=== PATIENT | female | born 1990 | race Caucasian/White ===

== ENCOUNTER → 2017-02-03 | Outpatient (CLI) | payer OTHER ==
[~2017-02-03] MED LIST: LEVEMIR SQ; NOVOLOGP2 SQ
== END ==
LOC: HPND 08:13
PROVIDERS: ATTEND Obstetrics & Gynecology
DX: O36.80X0 Pregnancy with inconclusive fetal viability, not applicable or unspecified (principal); O24.919 Unspecified diabetes mellitus in pregnancy, unspecified trimester
CPT/HCPCS: 76801

== ENCOUNTER 2017-03-07 09:21 | Inpatient (IN) | payer OTHER ==
[~2017-03-07] VITALS: Ht 160 cm; Wt 61.1 kg
[2017-03-07] MEDS ORDERED: ACETAMINOPHEN 325 MG TAB PO PRN (15:45)
[2017-03-07 16:00] VITALS: BP 97/63; PULSE 97; RESP 16; TEMP 97.1; O2SAT 98
[2017-03-07] MEDS ORDERED: DEXTROSE 50% IN WATER 50 ML VIAL(D50) IV PUSH PRN (16:00)
[2017-03-07] MEDS ORDERED: GLUCAGON 1 MG/ML VIAL OTHER PRN (16:00)
[2017-03-07] MEDS: INDIVIDUALIZED INSULIN NOVOLIN REGULAR SUPPLEMENTAL SCALE SQ SCH ×2 (16:00→21:32)
[2017-03-07] MEDS ORDERED: ZOLPIDEM TARTRATE 10 MG TAB PO PRN (16:45)
[2017-03-07] MEDS ORDERED: SODIUM CHLORIDE FLUSH PRN IV FLUSH (16:45)
[2017-03-07] MEDS: MULTIVIT/MIN/PREN/FOL AC/IRON PRENATAL TAB PO SCH (17:00)
[2017-03-07 17:14] LABS: AUTOMATED NEUTROPHIL # 6.5 TH/MM3 (1.8-7.7); BASOPHIL # 0.1 TH/MM3 (0-0.2); BASOPHIL % 0.9 % (0.0-2.0); EOSINOPHIL % 0.6 % (0.0-4.0); HEMO FLAGS DIFF FINAL; LYMPH % 19.2 % (9.0-44.0); LYMPHOCYTE # 1.7 TH/MM3 (1.0-4.8); MEAN CELL VOLUME 81.6 FL (80.0-100.0); MEAN CORPUSCULAR HEMOGLOBIN 27.8 PG (27.0-34.0); MEAN CORPUSCULAR HGB CONC 34.1 % (32.0-36.0); MONO % 5.5 % (0.0-8.0); NEUT % 73.8 % (16.0-70.0); PLATELET COUNT 231 TH/MM3 (150-450); RED BLOOD COUNT 4.29 MIL/MM3 (4.00-5.30); RED CELL DISTRIBUTION WIDTH 14.5 % (11.6-17.2); WHITE BLOOD COUNT 8.8 TH/MM3 (4.0-11.0)
--- NOTE | 2017-03-07 17:35 | PD.PN.STU ---
Subjective Remarks HPI: This is a 26 year old female at approximately 13 weeks gestation with Type I Diabetes admitted for management of uncontrolled blood sugars. She was diagnosed with Type I diabetes at 23 years old after an episode of DKA. After being diagnosed she saw an apple checker once in [place] but reports not getting along with them. She has not seen any other endocrinologists and has no current PCP. 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 He recently became concerned about her medication compliance and contacted Dr. Aguayo for help. Last Monday (03/01/17) pt reports that she caught a "GI bug" that consisted of vomiting and diarrhea for 12 hours. Due to vomiting, diarrhea and a decreased appetite Dr. Valles instructed her to reduce her insulin doses to half which came out to 12 units of Novolin in the am, 17 units of Levemir in the am, and 5 units of Levemir at pm. She continued to have a decreased appetite and on Monday was having very low blood sugars in the range of 40 - 53. Due to severe fatigue and inability to raise her blood sugars she went to the emergency room at [facility] on Monday. They administered D50 and also diagnosed her with a urinary tract infection. She was given a script for Macrobid 100 mg BID for 7 days but has not started the medication. This morning (03/18/2017) she had an appointment at the Diagnostic center at the request of Dr. Aguayo. They completed blood work, first trimester screen and an ultrasound. ultrasound was normal. They got a 2 hour post prandial glucose of 290. Pt reports that she had renuka donuts for breakfast prior to the appointment. Due to uncontrolled blood sugars - today's 290 and recent GI bug causing hypoglycemia it was determined that patient should be admitted to manage her diabetes and determine an insulin regimen. Today she is still feeling tired and her appetite is still not at baseline. At admission, around 4 pm, her 2 hour post prandial blood glucose was 163. Review of Systems: Patient denies any fevers, chills, headaches, vision changes, chest pain, cough , shortness of breath, abdominal pain, constipation, diarrhea, nausea, vomiting , muscles aches, weakness. Patient admits to some fatigue and decreased appetite. Past Medical History: Type I Diabetes Anxiety Past Surgical History: negative Medications: Novolin (70/30): 24 units in the morning Levemir: 35 units in the morning, 10 units at night. Zofran as needed for nausea Allergies: no known allergies. Gynecologic History: Menarche @ ____ History of regular menses. No history of sexually transmitted diseases. No history of abnormal paps. No history of cone biopsy, LEEP or other cervical, uterine, or concrete puddler procedures/ surgeries. Obstetrical History: Primigravida - approximately 13 weeks. LMP 12/06/2016 Estimated due date 09/12/17 Family History: Mom- alive, in good health. Dad- alive, in good health. 2 brothers- alive, in good health. 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 General: female appearing stated age in no acute distress. Well- developed, well-nourished, alert, oriented. Mom is at the bedside. Head: atraumatic, normocephalic. Eyes: sclera non-icteric. Heart: regular rate and rhythm. No murmurs, gallops or rubs. Lungs: clear to auscultation bilaterally. No crackles, wheezes, or rhonchi. Non- labored breathing, no use of accessory muscles. No signs of central or peripheral cyanosis. Imaging Ultrasound 03/18/2017: Transabdominal ultrasound - costa intrauterine gestation. CRL correlated with 13 weeks and 0 day gestation with normal cardiac activity. Nuchal translucency measurements obtained were 1.6 mm and this is considered normal. nasal bone identified. Anatomy Observed: Two cerebral hemispheres, two orbits, two upper extremities, two lower extremities, normal cord insertion to the fetus, stomach, bladder, sagittal view of spine. No gross congenital anomalies were identified at this date. Uterus: no uterine masses or abnormalities Adnexa: right adnexa observed and within normal limits. Left ovarian cyst measuring 2.28 cm x 2.59 cm x 2.36 cm Cul de sac: no free fluid A/P Assessment and Plan Impression: this is a 26 year old primigravid female at 13 weeks gestation with uncontrolled type I diabetes admitted for management of blood sugars and insulin regimen. ultrasound done 03/07/2017 showed no abnormalities. Assessment/Plan 1. - currently stable but considered a high risk due to type I diabetes 13 weeks gestational age Ultrasound done 03/07/2017 showed a healthy viable fetus labs were drawn this morning we will follow for results 2. Type I Diabetes - uncontrolled blood sugars will be tested morning and 2 hour post prandial start on regular insulin and levemir sliding scale as needed diabetic diet consult level vial inspector and tester / patient education 3. UTI Macrobid 100 mg twice a day for 7 days culture and sensitivity before initiating medication 4. Admission IV access estimate a 2 day stay until blood sugars have been regulated and insulin regimen established order Ambien 10 mg for sleep prn diabetic diet Edgardo Harmon M3 Mar 07, 2017 17:35
[2017-03-07 17:43] LABS: ALKALINE PHOSPHATASE 71 U/L (45-117); ALT (GPT) 28 U/L (10-53); ANION GAP 7 MEQ/L (5-15); AST (GOT) 14 U/L (15-37); BICARBONATE 26.4 MEQ/L (21.0-32.0); BLOOD UREA NITROGEN 8 MG/DL (7-18); CHLORIDE 106 MEQ/L (98-107); GLOMERULAR FILTRATION RATE 138 ML/MIN (>89); POTASSIUM 3.4 MEQ/L (3.5-5.1); SODIUM (NA) 139 MEQ/L (136-145); TOTAL BILIRUBIN ADULT 0.2 MG/DL (0.2-1.0)
[2017-03-07 20:00] VITALS: BP_SYST 101; BP_SYST 117; BP_DIAS 60; BP_DIAS 77; PULSE 98; RESP 16; TEMP 98.2; O2SAT 96; O2SAT 98
[2017-03-07] MEDS: SODIUM CHLORIDE FLUSH BID IV FLUSH SCH (21:00)
[2017-03-07] MEDS: INSULIN DETEMIR 100 UNITS/ML VIAL SQ SCH ×2 (21:00→23:24)
[2017-03-07] MEDS: NITROFURANTOIN MONOHYD MACROCR 100 MG CAP PO SCH (21:32)
[2017-03-07 22:14] LABS: HEMOGLOBIN A1a 0.9 %; HEMOGLOBIN A1b 1.7 %; HEMOGLOBIN Ao 82.9 %; HEMOGLOBIN LA1C 2.4 %; HEMOGLOBIN P3 4.2 %
--- NOTE | 2017-03-07 23:44 | MH ---
cc: JOSE HERNDON DATE OF ADMISSION: 03/07/2017 ADMITTING DIAGNOSIS: HISTORY OF PRESENT ILLNESS: The patient is a 26 year-old 1, para 0, who presented 13 weeks gestation with poorly controlled type 1 diabetes. The patient was admitted from diagnostics after having a blood sugar of 290, post prandial, stating that she had had [employer] munchkin and a coffee for breakfast. The patient's blood sugars have been labile over the past week. The patient had been hypoglycemic at the end of last week after having a GI bug. She had been followed by her employer, also internal medicine physician, Dr. Valles, for her blood sugars as she had been unhappy with the sausage cooker that she had seen at [facility] in the past. Today was the first time the patient had been evaluated by [facility]. The patient denies any symptoms currently in terms of vaginal bleeding, abdominal pain, nausea and vomiting. She denies dizziness, lightheadedness, shortness of breath, chest pain, sweats or chills. PAST MEDICAL HISTORY: 1. Significant for type 1 diabetes diagnosed at age 23. 2. Anxiety. PAST SURGICAL HISTORY: [place] tooth extraction. OBSTETRICAL HISTORY: First . PORTRAIT CONSULTANT HISTORY: No history of STDs or abnormal Pap smear. Positive history of polycystic ovarian syndrome. SOCIAL HISTORY: Negative for cigarettes, alcohol or street drugs. The patient is . ALLERGIES None. MEDICATIONS 1. vitamins. 2. Levemir. Her dosage had been reduced to 17 units of Levemir in the morning and 5 units in the evening. PHYSICAL EXAMINATION She is afebrile. Vitals are all stable. Heart: Regular rate and rhythm. Lungs: Clear to auscultation bilaterally. Abdomen: Soft, nontender, nondistended. Extremities: Lower extremities are nontender, nonedematous. LABORATORY DATA: Reviewed. Grossly within normal limits. Her hemoglobin A1c is notable for being 7.4, potassium a little bit low at 3.4. Random glucose is 121, liver function tests are grossly within normal limits. IMPRESSION Poorly controlled type 1 diabetic at 13 weeks. PLAN: Will admit. Will continue Levemir. Will add sliding scale regular insulin. Will also consult nurse educator and will also collect a 24-hour urine for total protein, creatinine clearance. Will continue antibiotics for UTI diagnosed on Monday. Will watch for clinical improvement. The patient understands the importance of being compliant with her diet and we will work to achieve this goal. All questions have been answered in the presence of the patient and her mother. MD HILDA Tan/ZABRINA /11:20 PM /11:32 PM
[2017-03-08] VITALS: BP 106/66; PULSE 81; RESP 16; TEMP 98.1; O2SAT 97
[2017-03-08 05:36] VITALS: BP 104/68; PULSE 77; RESP 16; TEMP 96.6; O2SAT 99
[2017-03-08] MEDS: INDIVIDUALIZED INSULIN NOVOLIN REGULAR SUPPLEMENTAL SCALE SQ SCH ×4 (06:22→22:08)
[2017-03-08 08:00] VITALS: BP 109/67; PULSE 91; RESP 18; TEMP 97.3; O2SAT 99
[2017-03-08] MEDS: NITROFURANTOIN MONOHYD MACROCR 100 MG CAP PO SCH ×2 (08:22→21:47)
[2017-03-08] MEDS: SODIUM CHLORIDE FLUSH BID IV FLUSH SCH ×2 (08:23→21:47)
[2017-03-08] MEDS ORDERED: INSULIN DETEMIR 100 UNITS/ML VIAL SQ SCH ×2 (09:00)
[2017-03-08 12:00] VITALS: BP 101/59; PULSE 88; RESP 18; TEMP 96.9; O2SAT 100
[2017-03-08 16:00] VITALS: BP 106/63; PULSE 86; RESP 18; TEMP 97.5; O2SAT 100
[2017-03-08] MEDS: MULTIVIT/MIN/PREN/FOL AC/IRON PRENATAL TAB PO SCH (17:54)
[2017-03-08 21:10] VITALS: BP 105/63; PULSE 98; RESP 16; TEMP 98.3; O2SAT 98
[2017-03-08] MEDS ORDERED: NALOXONE HCL 0.4 MG/ML AMP IV PRN (22:30)
[2017-03-08] MEDS ORDERED: SODIUM CHLORIDE 0.9% FLUSH 10 ML FLUSH IV FLUSH PRN (22:30)
--- NOTE | 2017-03-08 22:42 | HHI.PR ---
Subjective Remarks pt with 2 hypoglycemic episodes overnight. denies dizziness, lightheadedness and SOB Objective Vital Signs Date Time Temp Pulse Resp B/P Pulse Ox O2 Delivery O2 Flow Rate FiO2 03/08/17 21:10 98.3 98 16 105/63 98 03/08/17 16:00 97.5 86 18 106/63 100 03/08/17 12:00 96.9 88 18 101/59 100 03/08/17 08:00 97.3 91 18 109/67 99 03/08/17 05:36 96.6 77 16 104/68 99 03/08/17 00:00 98.1 81 16 106/66 97 I/O 03/07/17 03/07/17 03/07/17 03/08/17 03/08/17 03/08/17 07:00 15:00 23:00 07:00 15:00 23:00 Intake Total 360 ml 250 ml 1820 ml Output Total 500 ml 1950 ml Balance 360 ml -250 ml -130 ml Intake Oral 360 ml 250 ml 1820 ml IV Total 0 ml Output Urine Total 500 ml 1950 ml # Voids 1 # Bowel Movements 0 0 0 Result Diagram: 03/07/17 1700 03/07/17 1700 Objective Remarks GENERAL: Well-nourished, well-developed patient. CARDIOVASCULAR: Regular rate and rhythm without murmurs, gallops, or rubs. RESPIRATORY: Breath sounds equal bilaterally. No accessory muscle use. ABDOMEN/GI: Abdomen soft, non-tender. EXTREMITIES: No cyanosis or edema, non-tender, without signs of DVT. Assessment and Plan Problem List: (1) Diabetes mellitus affecting in first trimester Status: Acute Plan: cont to titrate levemir and regular insulin to achieve better control of blood sugars. cont DM diet cont macrobid for UTI Hannah Aguayo MD Mar 08, 2017 22:42
[2017-03-08] MEDS ORDERED: DEXTROSE 50% IN WATER 50 ML VIAL(D50) IV PUSH PRN (23:45)
[2017-03-08] MEDS ORDERED: GLUCAGON 1 MG/ML VIAL OTHER PRN (23:45)
[2017-03-09 00:05] VITALS: BP 104/59; PULSE 76; RESP 16; TEMP 98.4; O2SAT 99
[2017-03-09] MEDS: INSULIN DETEMIR 100 UNITS/ML VIAL SQ SCH (00:05)
[2017-03-09 03:09] LABS: CREAT 24 TIMED 39.8 MG/DL; URINE TOTAL PROTEIN TIMED 6.8 MG/DL
[2017-03-09 05:10] VITALS: BP 104/63; PULSE 87; RESP 16; TEMP 96.3; O2SAT 98
[2017-03-09] MEDS: INSULIN ASPART 1,000 UNITS/10 ML VIAL SQ SCH ×2 (07:00→13:39)
[2017-03-09] MEDS: INDIVIDUALIZED INSULIN NOVOLOG SUPPLEMENTAL SCALE SQ SCH ×2 (07:00→13:38)
[2017-03-09 08:00] VITALS: BP 104/66; PULSE 82; RESP 18; TEMP 97.8; O2SAT 99
[2017-03-09] MEDS ORDERED: SODIUM CHLORIDE 0.9% FLUSH 10 ML FLUSH IV FLUSH SCH (09:00)
[2017-03-09] MEDS ORDERED: INSULIN DETEMIR 100 UNITS/ML VIAL SQ SCH (09:00)
[2017-03-09] MEDS: NITROFURANTOIN MONOHYD MACROCR 100 MG CAP PO SCH (09:12)
[2017-03-09 12:00] VITALS: BP 101/55; PULSE 94; RESP 18; TEMP 96.6; O2SAT 99
[2017-03-09 16:00] VITALS: BP 96/61; PULSE 92; RESP 18; TEMP 97; O2SAT 98
--- NOTE | 2017-03-09 17:24 | HHI.DCPOC ---
Discharge Care Plan Diagnosis: (1) Diabetes mellitus affecting in first trimester Report Symptoms to Your Doctor -Temperate above 100.5 degrees -Redness, of incision or excessive or foul smelling drainage -Unusual pain or calf pain -Increased vaginal bleeding -Painful or difficulty urinating -Feelings of extreme sadness or anxiety after 2 weeks Goals to Promote Your Health * To prevent worsening of your condition and complications * To maintain your health at the optimal level Directions to Meet Your Goals Take your medications as prescribed Follow your dietary instruction Follow activity as directed Ensure plenty of rest for recovery Drink fluids for hydration Keep your appointments as scheduled Take your immunizations and boosters as scheduled If your symptoms worsen call your PCP, if no PCP go to Urgent Care Center or Emergency Room Smoking is Dangerous to Your Health. Avoid second hand smoke Call the 24-hour crisis hotline for domestic abuse at Hannah Aguayo MD Mar 09, 2017 17:24
[2017-03-09] MEDS: MULTIVIT/MIN/PREN/FOL AC/IRON PRENATAL TAB PO SCH (17:28)
--- NOTE | 2017-03-09 17:33 | HHI.DS ---
Discharge Summary Admission Date Mar 07, 2017 at 14:49 Discharge Date: Mar 09, 2017 Admitting Diagnosis poorly controlled DM in first trimester of (1) Diabetes mellitus affecting in first trimester Diagnosis: Principal CBC/BMP: 03/07/17 1700 03/07/17 1700 Significant Findings Laboratory Tests Test 03/07/17 03/09/17 17:00 02:31 Neutrophils (%) (Auto) 73.8 % (16.0-70.0) Potassium Level 3.4 MEQ/L (3.5-5.1) Random Glucose 121 MG/DL (74-106) Hemoglobin A1c 7.4 % (4.3-6.0) Aspartate Amino Transf 14 U/L (15-37) (AST/SGOT) Albumin 3.1 GM/DL (3.4-5.0) Urine Total Protein 24 Hour 170 MG/24HR (0-150) PE at Discharge GENERAL: Well-nourished, well-developed patient. CARDIOVASCULAR: Regular rate and rhythm without murmurs, gallops, or rubs. RESPIRATORY: Breath sounds equal bilaterally. No accessory muscle use. ABDOMEN/GI: Abdomen soft, non-tender. EXTREMITIES: No cyanosis or edema, non-tender, without signs of DVT. Hospital Course pt was admitted her insulin regimen was adjusted. her novolin 70/30 was d/c'd and novolog was started. The patient's hypoglycemic episodes resolved. The patient states that she will be compliant with qid accu checks and new insulin regimen and will see endocrinology. importance of compliance reviewed. Pt Condition on Discharge: Good Discharge Disposition: Discharge Home Discharge Instructions DIET: Follow Instructions for: Diabetic Diet Activities you can perform: Regular-No Restrictions Hannah Aguayo MD Mar 09, 2017 17:33
[2017-03-09] MEDS ORDERED: LEVEMIR SQ (21:07)
[2017-03-09] MEDS ORDERED: NOVOLOGP2 SQ (21:09)
== END 2017-03-09 18:50 | disposition home or self-care (01) | DRG 781 ==
LOC: HPND 09:21 → EDUNIT# 13:00 → HOCA 14:49
PROVIDERS: ADMIT Obstetrics & Gynecology; ATTEND Obstetrics & Gynecology
DX: O24.011 Pre-existing type 1 diabetes mellitus, in pregnancy, first trimester (principal); E10.649 Type 1 diabetes mellitus with hypoglycemia without coma; O23.41 Unspecified infection of urinary tract in pregnancy, first trimester; O99.281 Endocrine, nutritional and metabolic diseases complicating pregnancy, first trimester; E28.2 Polycystic ovarian syndrome; Z3A.13 13 weeks gestation of pregnancy; O09.891 Supervision of other high risk pregnancies, first trimester; Z79.4 Long term (current) use of insulin
CPT/HCPCS: 36416; 76813; 80053; 82570; 82948; 83036; 84157; 84443; 85025; J1815

== ENCOUNTER → 2017-04-11 | Outpatient (CLI) | payer OTHER | LOC: HPND 09:26 | PROVIDERS: ATTEND Obstetrics & Gynecology | DX: O24.012 Pre-existing type 1 diabetes mellitus, in pregnancy, second trimester (principal); Z3A.18 18 weeks gestation of pregnancy | CPT/HCPCS: 76811 ==

== ENCOUNTER → 2017-05-10 | Outpatient (CLI) | payer OTHER | LOC: HPND 10:37 | PROVIDERS: ATTEND Obstetrics & Gynecology | DX: O24.012 Pre-existing type 1 diabetes mellitus, in pregnancy, second trimester (principal); Z3A.22 22 weeks gestation of pregnancy | CPT/HCPCS: 76816; 76825; 76827; 93325 ==

== ENCOUNTER → 2017-06-08 | Outpatient (CLI) | payer OTHER | LOC: HPND 14:45 | PROVIDERS: ATTEND Obstetrics & Gynecology | DX: O24.112 Pre-existing type 2 diabetes mellitus, in pregnancy, second trimester (principal); Z3A.26 26 weeks gestation of pregnancy | CPT/HCPCS: 76816 ==

== ENCOUNTER → 2017-07-06 | Outpatient (CLI) | payer OTHER ==
[~2017-07-06] MED LIST changes: +IBUP-232 PO; +OXYC1TAB63 PO
== END ==
LOC: HPND 15:18
PROVIDERS: ATTEND Obstetrics & Gynecology
DX: O24.113 Pre-existing type 2 diabetes mellitus, in pregnancy, third trimester (principal)
CPT/HCPCS: 76816

== ENCOUNTER 2017-08-18 09:59 | Inpatient (IN) | payer OTHER ==
[~2017-08-18 09:59] MED LIST changes: -IBUP-232 PO; -OXYC1TAB63 PO
[2017-08-18] MEDS: LACTATED RINGER'S 1000 ML INJ 1,000 ML IV SCH ×5 (10:56→23:00)
[2017-08-18 11:44] LABS: AUTOMATED NEUTROPHIL # 8.1 TH/MM3 (1.8-7.7); BASOPHIL % 0.4 % (0.0-2.0); EOSINOPHIL % 0.3 % (0.0-4.0); HEMO FLAGS DIFF FINAL; LYMPH % 15.8 % (9.0-44.0); LYMPHOCYTE # 1.6 TH/MM3 (1.0-4.8); MEAN CELL VOLUME 73.2 FL (80.0-100.0); MEAN CORPUSCULAR HEMOGLOBIN 23.8 PG (27.0-34.0); MEAN CORPUSCULAR HGB CONC 32.6 % (32.0-36.0); MONO % 5.4 % (0.0-8.0); NEUT % 78.1 % (16.0-70.0); PLATELET COUNT 159 TH/MM3 (150-450); RED BLOOD COUNT 3.82 MIL/MM3 (4.00-5.30); RED CELL DISTRIBUTION WIDTH 16.3 % (11.6-17.2); WHITE BLOOD COUNT 10.4 TH/MM3 (4.0-11.0)
[2017-08-18] MEDS ORDERED: OXYTOCIN 10 UNIT/ML AMP IV ONE (12:00)
[2017-08-18] MEDS ORDERED: ONDANSETRON HCL 4 MG/2 ML VIAL IV PUSH ONE (12:00)
[2017-08-18] MEDS ORDERED: MORPHINE SULFATE PF 5 MG/10 ML VIAL EPIDURAL ONE (12:00)
[2017-08-18] MEDS ORDERED: LACTATED RINGER'S 1000 ML INJ 2,000 ML IV ONE (12:00)
[2017-08-18] MEDS ORDERED: ePHEDrine/NS 25 MG/5 ML SYR IV ONE (12:00)
[2017-08-18 12:01] LABS: GLUCOSE,2HR PP 173 MG/DL; GLUCOSE,FASTING 173 MG/DL (74-99)
[2017-08-18 12:36] LABS: BACTERIA, URINE RARE /hpf; BLOOD, URINE NEG (NEG); COMMENT (UR) CULTURE INDICATED; CULTURE IF INDICATED CULTURE INDICATED; GLUCOSE,URINE 1000 mg/dL (NEG); KETONE, URINE NEG (NEG); MUCUS URINE FEW /lpf (OCC); NITRITE,URINE NEG (NEG); SQUAMOUS EPITHELIAL CELL URINE 2 /hpf (0-5); URINE COLOR YELLOW (YELLW/STRAW)
[2017-08-18] MEDS ORDERED: LACTATED RINGER'S 1000 ML INJ 1,000 ML IV ONE (14:41)
[2017-08-18] MEDS: DEXTROSE 5%-LACTATED RING INJ 1,000 ML IV SCH ×2 (15:15→23:15)
[2017-08-18] MEDS ORDERED: DEXTROSE 5%-LACTATED RING INJ 1,000 ML IV SCH (15:15)
--- NOTE | 2017-08-18 15:17 | MH ---
cc: HANNAH HERNDON DATE OF ADMISSION: 08/18/2017 HISTORY OF PRESENT ILLNESS The patient is a 27-year-old, 1, para 0, who presents at 36 and 3/7 weeks from diagnostics secondary to non-reassuring testing. She had a biophysical profile that was 6/10 and an amniotic fluid index of 32. On her tracings there she had minimal variability and one long deceleration noted. The patient was then sent to labor and delivery for further testing. The patient's has been complicated by pregestational diabetes and she has been poorly compliant with her diet. PAST MEDICAL HISTORY Diabetes. PAST SURGICAL HISTORY Negative. OB HISTORY This is her first . 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 SOCIAL HISTORY Negative for cigarettes, alcohol or street drugs. MEDICATIONS Current medications are insulin. She takes Tresiba and a NovoLog FlexPen. ALLERGIES None. PHYSICAL EXAMINATION VITAL SIGNS: She is afebrile. Her blood pressure is 130/67. GENERAL: She is in no acute distress. HEART: Regular rate and rhythm. LUNGS: Clear to auscultation bilaterally. ABDOMEN: Gravid. EXTREMITIES: Lower extremities with 1-2+ edema bilaterally. HEART RATE TRACING heart tones are in the 150s. There is minimal variability. There are occasional decelerations. Also occasional contractions are noted. IMPRESSION at 36 and 3/7 weeks with non-reassuring testing remote from delivery, and suspect intolerance to labor. PLAN Reviewed with the patient indications for delivery given poorly controlled diabetes, polyhydramnios and non-reassuring testing. The risks, benefits and alternatives of have been reviewed. The patient understands and does desire to proceed. We also reviewed the risk of prematurity and risk of poorly controlled diabetes with the patient. She understands that the baby will likely need to spend time in the NICU. Will also consult neonatology. Hannah Herndon MD TEG/BT /2:36 PM /3:04 PM
[2017-08-18] MEDS ORDERED: ACETAMINOPHEN 1000 MG/100 ML 100 ML IV ONE ×2 (15:43→17:00)
[2017-08-18] MEDS ORDERED: ceFAZolin 2 GM PREMIX 50 ML IV SCH (15:45)
[2017-08-18 15:54] LABS: HEMOGLOBIN A1a 1.2 %; HEMOGLOBIN A1b 2.1 %; HEMOGLOBIN Ao 80.5 %; HEMOGLOBIN LA1C 2.5 %; HEMOGLOBIN P3 4.3 %
[2017-08-18] MEDS ORDERED: MORPHINE SULFATE PF 5 MG/10 ML VIAL IT ONE (15:59)
[2017-08-18] MEDS ORDERED: CITRIC ACID-SODIUM CITRATE LIQ 30 ML UDC PO SCH (16:15)
[2017-08-18] MEDS ORDERED: DOCUSATE SODIUM 50 MG/SENNA 8.6 MG TAB PO PRN (17:00)
[2017-08-18] MEDS ORDERED: SIMETHICONE 80 MG CHEWABLE TAB PO PRN (17:00)
[2017-08-18] MEDS ORDERED: KETOROLAC TROMETHAMINE 60 MG/2 ML (IM) VIAL IM PRN ×2 (17:00)
[2017-08-18] MEDS ORDERED: ZOLPIDEM TARTRATE 5 MG TAB PO PRN (17:00)
[2017-08-18] MEDS ORDERED: oxyCODONE/ACETAMINOPHEN 5 MG/325 MG TAB PO PRN (17:00)
[2017-08-18] MEDS ORDERED: SODIUM CHLORIDE 0.9% FLUSH 10 ML FLUSH IV FLUSH PRN (17:00)
[2017-08-18] MEDS ORDERED: OXYTOCIN 10 UNIT/ML AMP XX PRN (17:00)
[2017-08-18] MEDS ORDERED: OXYTOCIN 30 UNITS-500ML PREMIX 500 ML IV ONE (17:00)
[2017-08-18] MEDS ORDERED: LORazepam 0.5 MG TAB PO PRN (17:00)
[2017-08-18] MEDS ORDERED: OXYTOCIN 10 UNIT/ML AMP XX ONE (17:00)
[2017-08-18] MEDS ORDERED: MEPERIDINE HCL 25 MG/ML VIAL ONE (17:13)
[2017-08-18 17:36] LABS: BLOOD GAS BASE EXCESS -2.3 mmol/L (-2-2); BLOOD GAS O2 HGB SATURATION 6 % (90-100); CORD BLOOD GAS HCO3 26 mmol/L (21-29); CORD BLOOD GAS PCO2 85 mmHG (34-78); CORD BLOOD GAS PH 7.12 (7.14-7.42); CORD BLOOD GAS PO2 8 mmHG (3.0-40.0); DRAW SITE CORD BLOOD; STAT NO
[2017-08-18] MEDS: ONDANSETRON HCL 4 MG/2 ML VIAL IV PUSH PRN (18:57)
[2017-08-18] MEDS ORDERED: EPIDURAL-NALOXONE HCL 0.4 MG/ML AMP IV PUSH PRN (20:00)
[2017-08-18] MEDS ORDERED: EPIDURAL-NO SYSTEMIC NARCOTICS PRN (20:00)
[2017-08-18] MEDS ORDERED: EPIDURAL-DIPHENHYDRAMINE HCL 50 MG CAP PO PRN (20:00)
[2017-08-18] MEDS ORDERED: EPIDURAL-DO NOT ADMINISTER ANTICOAGULANTS PRN (20:00)
[2017-08-18] MEDS ORDERED: EPIDURAL-DIPHENHYDRAMINE HCL 50 MG/ML VIAL IV PUSH PRN (20:00)
--- NOTE | 2017-08-18 20:43 | MP ---
cc: JOSE HERNDON MD DATE OF SURGERY 08/18/17 PREOPERATIVE DIAGNOSIS Intrauterine at 36-3/7 weeks gestation, non-reassuring heart tones, poorly controlled gestational diabetic POSTOPERATIVE DIAGNOSIS 1. Intrauterine at 36-3/7 weeks gestation, non-reassuring heart tones, poorly controlled gestational diabetic 2. Delivery of viable male . PROCEDURE Primary low transverse section. SURGEON Marsha Herndon MD ANESTHESIA Spinal. ESTIMATED BLOOD LOSS 700 mL. DRAINS [place] to gravity FINDINGS Normal tubes and ovaries bilaterally. Normal uterus grossly DISPOSITION Stable in the PACU INDICATIONS The patient is a 27-year-old 1, para 0 who presented to the hospital from OB diagnostics after having non-reassuring testing. We did prolonged monitoring and even IV hydrated. The heart rate tracing remained category II and the patient's cervix was only 1 cm, thus being remote from delivery and with a category II treating it was felt that we could not safely start Pitocin to induce labor. Thus, the patient was consented for a . PROCEDURE IN DETAIL After informed consent was obtained, she was taken to the operating room, given spinal anesthesia. She was then prepped and draped in normal sterile fashion for surgery. A Pfannenstiel skin incision was made two fingerbreadths above the pubic symphysis and carried down to the underlying layer of fascia using the Bovie. The fascia was incised in the midline. The fascial incision extended laterally digitally. The rectus muscles were in midline. The peritoneum was identified and entered bluntly. The peritoneal incision was extended superiorly and inferiorly with good visualization of the bladder. The bladder blade was inserted. The vesicouterine peritoneum was identified, tented up and entered sharply. The bladder blade was reinserted. A transverse incision was then made on the lower uterine segment to a layer just exposing membranes. These are ruptured for copious amount of clear fluid as the patient had polyhydramnios with an TANYA of 32. Next, the vertex was delivered atraumatically followed by the remainder of the 's body. The cord was doubly clamped and cut. The cord gas was obtained. Cord bloods are also obtained. The placenta was removed manually intact with a three-vessel cord. Placenta sent off to pathology for further identification. Next, the uterus was exteriorized, cleared of all clot and debris. Tubes and ovaries again appeared grossly within normal limits. The patient had a small peritubal cyst on her left side that was drained without difficulty. The uterine incision was repaired using one chromic suture in a running lock fashion. A second layer was placed in an imbricating manner using zero chromic suture in a running fashion. Finally hemostasis was assured. The uterus was returned to the abdominal cavity. The gutters were cleared of all clot and debris. Seprafilm was placed over the incision. The rectus muscles were reapproximated using zero chromic suture in an interrupted fashion. The fascia was reapproximated using 0 Vicryl suture in a running fashion. The subcutaneous fat is irrigated and made hemostatic using the Bovie and reapproximated using 3-0 chromic suture in a running fashion. Finally, the skin is closed using 3-0 Monocryl suture in a subcuticular fashion with good result. Steri-Strips ae placed. At this point, it was felt the procedure was complete. All counts were correct x2. The patient was then taken to recovery room in stable condition. It should also be noted that the cord gas was unavailable at the time of this dictation. The baby weighed 9 pounds even and the Apgars were 4 and 8. MD HILDA Tan/ /5:06 PM /8:21 PM
[2017-08-18] MEDS ORDERED: TRESIBA SQ SCH (21:00)
[2017-08-19] MEDS: ONDANSETRON HCL 4 MG/2 ML VIAL IV PUSH PRN (00:35)
[2017-08-19] MEDS: LACTATED RINGER'S 1000 ML INJ 1,000 ML IV SCH ×7 (03:00→19:00)
[2017-08-19] MEDS ORDERED: OXYTOCIN 30 UNITS-500ML PREMIX 500 ML IV PRN (03:00)
[2017-08-19] MEDS: IBUPROFEN 600 MG TAB PO PRN ×3 (05:13→17:23)
[2017-08-19 06:52] LABS: AUTOMATED NEUTROPHIL # 8.8 TH/MM3 (1.8-7.7); BASOPHIL % 0.3 % (0.0-2.0); EOSINOPHIL % 0.1 % (0.0-4.0); HEMATOCRIT 23.3 % (35.0-46.0); HEMO FLAGS DIFF FINAL; LYMPH % 13.3 % (9.0-44.0); LYMPHOCYTE # 1.4 TH/MM3 (1.0-4.8); MEAN CELL VOLUME 72.9 FL (80.0-100.0); MEAN CORPUSCULAR HEMOGLOBIN 23.4 PG (27.0-34.0); MEAN CORPUSCULAR HGB CONC 32.1 % (32.0-36.0); NEUT % 82.3 % (16.0-70.0); PLATELET COUNT 147 TH/MM3 (150-450); RED BLOOD COUNT 3.19 MIL/MM3 (4.00-5.30); RED CELL DISTRIBUTION WIDTH 15.7 % (11.6-17.2); WHITE BLOOD COUNT 10.7 TH/MM3 (4.0-11.0)
[2017-08-19] MEDS: DEXTROSE 5%-LACTATED RING INJ 1,000 ML IV SCH ×3 (07:15→23:15)
[2017-08-19] MEDS: SODIUM CHLORIDE 0.9% FLUSH 10 ML FLUSH IV FLUSH SCH ×2 (09:00→21:00)
--- NOTE | 2017-08-19 11:19 | HHI.OB ---
Subjective Post Operative Day: 1 Remarks pain controlled, mod lochia, awaiting void. +flatus. baby in NICU Objective Result Diagram: 08/19/17 0631 Objective Remarks GENERAL: Well-nourished, well-developed patient. CARDIOVASCULAR: Regular rate and rhythm without murmurs, gallops, or rubs. RESPIRATORY: Breath sounds equal bilaterally. No accessory muscle use. ABDOMEN/GI: Abdomen soft, non-tender, bowel sounds present. Dressing: Clean, dry and intact. Fundus: Firm, non-tender at umbilicus. GENITOURINARY: Light to moderate bleeding. EXTREMITIES: No cyanosis or edema, non-tender, without signs of DVT. Medications and IVs Current Medications Medications (Trade) Dose Ordered Sig/Jose Route Start Time Stop Time Status Last Admin Lactated Ringer's 1,000 ml @ 125 mls/hr Q8H IV 08/18/17 11:00 08/18/17 12:39 Lactated Ringer's 1,000 ml @ 150 mls/hr Q6H40M IV 08/18/17 15:11 Cefazolin Sodium/ Dextrose 50 ml @ 100 mls/hr TIRE CARE MANAGER IV 08/18/17 15:45 08/22/17 15:44 08/18/17 17:36 (Bicitra Liq) 30 ml TIRE CARE MANAGER PO 08/18/17 16:15 08/22/17 16:14 08/18/17 17:36 Dextrose/Lactated Ringer's 1,000 ml @ 125 mls/hr Q8H IV 08/18/17 15:15 08/18/17 15:15 (Pitocin Inj) 20 units UNSCH X1 PRN XX 08/18/17 17:00 08/19/17 16:59 Lactated Ringer's 1,000 ml @ 100 mls/hr Q10H IV 08/18/17 21:59 08/19/17 17:58 08/19/17 08:41 Oxytocin 500 ml @ 100 mls/hr UNSCH X1 PRN IV 08/19/17 03:00 08/20/17 02:59 (NS Flush) 2 ml BID IV FLUSH 08/18/17 21:00 (NS Flush) 2 ml UNSCH PRN IV FLUSH 08/18/17 17:00 (Mylicon Chew) 80 mg QID PRN PO 08/18/17 17:00 (Motrin) 600 mg Q6H PRN PO 08/18/17 17:00 08/19/17 05:13 (Toradol Inj) 60 mg UNSCH X1 PRN IM 08/18/17 17:00 08/19/17 16:59 (Toradol Inj) 30 mg Q6H PRN IM 08/18/17 17:00 08/19/17 16:59 (Percocet 5-325 Mg) 1 tab Q4H PRN PO 08/18/17 17:00 (Percocet 5-325 Mg) 2 tab Q4H PRN PO 08/18/17 17:00 (Katherin-Colace) 2 tab Q12H PRN PO 08/18/17 17:00 (Ambien) 5 mg HS PRN PO 08/18/17 17:00 (M-M-R Ii Inj) 0.5 ml ONCE ONCE SQ 08/19/17 16:00 08/19/17 16:01 (Boostrix Inj) 0.5 ml ONCE ONCE IM 08/19/17 16:00 08/19/17 16:01 (Zofran Inj) 4 mg Q6H PRN IV PUSH 08/18/17 17:00 08/19/17 00:35 (Ativan) 0.5 mg Q8H PRN PO 08/18/17 17:00 Miscellaneous Information NO SYSTEMIC NARCOTICS TO BE GIVEN FO... UNSCH PRN .XX 08/18/17 20:00 08/19/17 19:59 (Narcan Inj) 0.4 mg UNSCH PRN IV PUSH 08/18/17 20:00 08/19/17 19:59 (Benadryl Inj) 25 mg Q6H PRN IV PUSH 08/18/17 20:00 08/19/17 19:59 08/18/17 23:20 (Benadryl) 50 mg Q6H PRN PO 08/18/17 20:00 08/19/17 19:59 Miscellaneous Information ALL NURSING DEPARTMENTS UNSCH PRN .XX 08/18/17 20:00 08/19/17 19:59 Patient Own Medication PT OWN MED: TRESEBA... HS SQ 08/18/17 21:00 UNV Assessment/Plan Problem List: (1) delivery, delivered, current hospitalization ICD Codes: O82 - Encounter for delivery without indication Plan: routine po care (2) Diabetes mellitus affecting in first trimester ICD Codes: O24.911 - Unspecified diabetes mellitus in , first trimester Status: Acute Plan: continue low dose of insulin and accu checks fasting and 2 hrs pp Hannah Aguayo MD Aug 19, 2017 11:18
[2017-08-19] MEDS: oxyCODONE/ACETAMINOPHEN 5 MG/325 MG TAB PO PRN ×3 (11:50→18:27)
[2017-08-19] MEDS ORDERED: INSULIN ASPART 1,000 UNITS/10 ML VIAL SQ ONE ×2 (12:15→19:00)
[2017-08-19 12:21] VITALS: BP 127/84; PULSE 70; RESP 16; TEMP 98.4
[2017-08-19] MEDS ORDERED: MEASLES, MUMPS, RUBELLA VACCINE 0.5 ML VIAL SQ ONE (16:00)
[2017-08-19] MEDS ORDERED: INSULIN ASPART 1,000 UNITS/10 ML VIAL SQ SCH (16:00)
[2017-08-19] MEDS ORDERED: DIPHTH/TETANUS/ACEL PERTUSSIS (BOOSTER) 0.5 ML VIAL/PFS IM ONE (16:00)
[2017-08-19 16:10] VITALS: BP 142/80; PULSE 79; RESP 18; TEMP 98.7
[2017-08-20] MEDS: LACTATED RINGER'S 1000 ML INJ 1,000 ML IV SCH ×7 (00:31→20:31)
[2017-08-20] MEDS: IBUPROFEN 600 MG TAB PO PRN ×3 (04:46→20:03)
[2017-08-20] MEDS: oxyCODONE/ACETAMINOPHEN 5 MG/325 MG TAB PO PRN ×5 (04:46→22:49)
[2017-08-20] MEDS ORDERED: INSULIN ASPART 1,000 UNITS/10 ML VIAL SQ SCH ×3 (07:00→17:00)
[2017-08-20] MEDS: DEXTROSE 5%-LACTATED RING INJ 1,000 ML IV SCH ×3 (07:15→23:15)
[2017-08-20] MEDS: SODIUM CHLORIDE 0.9% FLUSH 10 ML FLUSH IV FLUSH SCH ×3 (09:00→21:00)
--- NOTE | 2017-08-20 09:07 | HHI.OB ---
Subjective Post Operative Day: 2 Remarks pain controlled, mod lochia, rahul po, +void/flatus Objective Vitals/I&O Vital Signs Date Time Temp Pulse Resp B/P (MAP) Pulse Ox O2 Delivery O2 Flow Rate FiO2 08/19/17 16:10 98.7 79 18 142/80 (100) 08/19/17 12:21 98.4 70 16 127/84 (98) Result Diagram: 08/19/17 0631 Other Results bs 7:15 am 107 6:48 am 59 08/19 6:30 pm 62 4:20 95 11:40 224 Objective Remarks GENERAL: Well-nourished, well-developed patient. CARDIOVASCULAR: Regular rate and rhythm without murmurs, gallops, or rubs. RESPIRATORY: Breath sounds equal bilaterally. No accessory muscle use. ABDOMEN/GI: Abdomen soft, non-tender, bowel sounds present. incision: Clean, dry and intact. Fundus: Firm, non-tender at umbilicus. GENITOURINARY: Light to moderate bleeding. EXTREMITIES: No cyanosis or edema, non-tender, without signs of DVT. Medications and IVs Current Medications Medications (Trade) Dose Ordered Sig/Jose Route Start Time Stop Time Status Last Admin Lactated Ringer's 1,000 ml @ 125 mls/hr Q8H IV 08/18/17 11:00 08/18/17 12:39 Lactated Ringer's 1,000 ml @ 150 mls/hr Q6H40M IV 08/18/17 15:11 Cefazolin Sodium/ Dextrose 50 ml @ 100 mls/hr CONFECTIONERY LABORATORY MANAGER IV 08/18/17 15:45 08/22/17 15:44 08/18/17 17:36 (Bicitra Liq) 30 ml CONFECTIONERY LABORATORY MANAGER PO 08/18/17 16:15 08/22/17 16:14 08/18/17 17:36 Dextrose/Lactated Ringer's 1,000 ml @ 125 mls/hr Q8H IV 08/18/17 15:15 08/18/17 15:15 (NS Flush) 2 ml BID IV FLUSH 08/18/17 21:00 (NS Flush) 2 ml UNSCH PRN IV FLUSH 08/18/17 17:00 (Mylicon Chew) 80 mg QID PRN PO 08/18/17 17:00 (Motrin) 600 mg Q6H PRN PO 08/18/17 17:00 08/20/17 04:46 (Percocet 5-325 Mg) 1 tab Q4H PRN PO 08/18/17 17:00 08/20/17 07:33 (Percocet 5-325 Mg) 2 tab Q4H PRN PO 08/18/17 17:00 (Katherin-Colace) 2 tab Q12H PRN PO 08/18/17 17:00 (Ambien) 5 mg HS PRN PO 08/18/17 17:00 (Zofran Inj) 4 mg Q6H PRN IV PUSH 08/18/17 17:00 08/19/17 00:35 (Ativan) 0.5 mg Q8H PRN PO 08/18/17 17:00 Patient Own Medication PT OWN MED: TRESEBA... HS SQ 08/18/17 21:00 Future Hold (NovoLOG INJ) 7 units AC BREAKFAST SQ 08/20/17 07:00 (NovoLOG INJ) 7 units AC LUNCH SQ 08/20/17 11:00 (NovoLOG INJ) 7 units AC DINNER SQ 08/20/17 16:00 Assessment/Plan Problem List: (1) delivery, delivered, current hospitalization ICD Codes: O82 - Encounter for delivery without indication Plan: routine po care (2) Diabetes mellitus affecting in first trimester ICD Codes: O24.911 - Unspecified diabetes mellitus in , first trimester Status: Acute Plan: continue low dose of insulin Novolog 5 units with meals and tresiba 7 units at bedtime and accu checks fasting and 2 hrs pp Hannah Aguayo MD Aug 20, 2017 09:07
[2017-08-20] MEDS: INSULIN ASPART 1,000 UNITS/10 ML VIAL SQ SCH ×2 (09:37→12:00)
[2017-08-20] MEDS ORDERED: INSULIN ASPART 1,000 UNITS/10 ML VIAL SQ ONE (13:00)
[2017-08-20] MEDS: BETAMETHASONE DIPROPIONATE 0.05% CREAM 15 GM TOPICAL SCH ×2 (14:00→18:00)
[2017-08-20] MEDS ORDERED: TRESIBA SQ SCH ×2 (21:00)
[2017-08-21] MEDS: LACTATED RINGER'S 1000 ML INJ 1,000 ML IV SCH ×2 (03:00→03:11)
[2017-08-21] MEDS: BETAMETHASONE DIPROPIONATE 0.05% CREAM 15 GM TOPICAL SCH (09:02)
[2017-08-21] MEDS: INSULIN ASPART 1,000 UNITS/10 ML VIAL SQ SCH ×2 (09:02→12:05)
[2017-08-21] MEDS: SODIUM CHLORIDE 0.9% FLUSH 10 ML FLUSH IV FLUSH SCH (09:09)
[2017-08-21] MEDS: IBUPROFEN 600 MG TAB PO PRN ×2 (09:09→14:53)
[2017-08-21] MEDS ORDERED: OXYC1TAB63 PO (12:13)
[2017-08-21] MEDS ORDERED: IBUP-232 PO (12:13)
--- NOTE | 2017-08-21 12:14 | HHI.DCPOC ---
Discharge Care Plan Diagnosis: (1) Diabetes mellitus affecting in first trimester (2) delivery, delivered, current hospitalization Your Health Problems Are: delivery Report Symptoms to Your Doctor -Temperature above 100.5 degrees -Redness, of incision or excessive or foul smelling drainage -Unusual pain or calf pain -Increased vaginal bleeding -Painful or difficulty urinating -Feelings of extreme sadness or anxiety after 2 weeks Goals to Promote Your Health * To prevent worsening of your condition and complications * To maintain your health at the optimal level Directions to Meet Your Goals Take your medications as prescribed Follow your dietary instruction Follow activity as directed Ensure plenty of rest for recovery Drink fluids for hydration Keep your appointments as scheduled Take your immunizations and boosters as scheduled If your symptoms worsen call your PCP, if no PCP go to Urgent Care Center or Emergency Room Smoking is Dangerous to Your Health. Avoid second hand smoke Call the 24-hour crisis hotline for domestic abuse at Hannah Aguayo MD Aug 21, 2017 12:14
--- NOTE | 2017-08-21 12:19 | HHI.DS ---
Admission Date Aug 18, 2017 at 09:59 Discharge Date: Aug 21, 2017 Admitting Diagnosis [id number] wks, NRFHTs and testing, class B DM Diagnosis: Delivery Date: Aug 18, 2017 : Primary Reason: NRFHTs and testing Infant: Male Hospital Course pt was admitted with non reassuring testing, remote from delivery, thus she had a . by POD 3 pt was voiding, passing gas, with good pain control. pt has appt to f/u with endocrine in am 08/22. Pt Condition on Discharge: Stable Discharge Disposition: Discharge Home Discharge Instructions Diet Instructions: As Tolerated, No Restrictions Additional Diet Instructions: Drink at least 8 - 16 oz bottles of water a day Activities You Can Perform: Shower Only-No Bath Activities to Avoid: Prolonged Standing, Strenuous Activity, Sexual Activity Additional Activity Instruc.: No driving until off pain medications Do not lift anything heavier than your baby in an infant carrier Hannah Aguayo MD Aug 21, 2017 12:19
[2017-08-21] MEDS: oxyCODONE/ACETAMINOPHEN 5 MG/325 MG TAB PO PRN (14:53)
[2017-08-21] MEDS ORDERED: DIPHTH/TETANUS/ACEL PERTUSSIS (BOOSTER) 0.5 ML VIAL/PFS IM ONE (15:15)
[2017-08-21] MEDS ORDERED: MEASLES, MUMPS, RUBELLA VACCINE 0.5 ML VIAL SQ ONE (15:15)
== END 2017-08-21 15:32 | disposition home or self-care (01) | DRG 765 ==
LOC: H2EA 09:59 → OBSVTOIN 09:59 → H1EA 18:27
PROVIDERS: ADMIT Obstetrics & Gynecology; ATTEND Obstetrics & Gynecology
PROC: 10D00Z1 Extraction of Products of Conception, Low, Open Approach (ICD-10-PCS; principal; 2017-08-18)
PROC: 0U960ZZ Drainage of Left Fallopian Tube, Open Approach (ICD-10-PCS; 2017-08-18)
DX: O40.3XX0 Polyhydramnios, third trimester, not applicable or unspecified (principal); O24.32 Unspecified pre-existing diabetes mellitus in childbirth; O76 Abnormality in fetal heart rate and rhythm complicating labor and delivery; N83.8 Other noninflammatory disorders of ovary, fallopian tube and broad ligament; Z37.0 Single live birth; Z3A.36 36 weeks gestation of pregnancy; Z91.19 Patient's noncompliance with other medical treatment and regimen
CPT/HCPCS: 59025; 76818; 81001; 82805; 82947; 82948; 83036; 85025; 86850; 86900; 86901; 87086; 87389; 88307; 90707; 90715; J0131; J0690; J1200; J1815; J2175; J2274; J2405; J2590; J7120; J7121